=== PATIENT | female | born 1930 | race Caucasian/White ===

== ENCOUNTER 2018-11-27 05:57 | Day surgery (SDC) | payer OTHER, BC ==
[2018-11-26 16:06] VITALS: BMI 24.1
[~2018-11-27 05:57] MED LIST: BUPIVACAINE HCL/PF 0.5% (5MG/ML) 10 ML VIAL IJ ONE
[2018-11-27] MEDS ORDERED: BUPIVACAINE HCL/PF 0.5% (5MG/ML) 10 ML VIAL ONE (07:33)
[2018-11-27] MEDS ORDERED: LIDOCAINE HCL 1%, 10 MG/ML (20ML VIAL) ONE (07:33)
[2018-11-27] MEDS ORDERED: PROPOFOL 20 ML ONE ×2 (08:05)
[2018-11-27] MEDS ORDERED: MIDAZOLAM HCL 2 MG/2 ML SINGLE DOSE VIAL ONE (08:06)
--- NOTE | 2018-11-27 08:08 | HP ---
Satellite [facility] - Chief Complaint Chief Complaint: left hand pain, numbness, tingling History of Present Illness: left CTS History Source: Patient Limitations to Obtaining History: No Limitations - Past Medical History Allergies/Adverse Reactions: Allergies Allergy/AdvReac Type Severity Reaction Status Date / Time No Known Allergies Allergy Verified 11/27/18 06:41 - Current Medications Current Medications: Home Medications Medication Instructions Recorded Acetaminophen [Tylenol] 650 mg PO TID 08/05/18 Ascorbic Acid [Vitamin C] 500 mg PO DAILY 11/26/18 Cholecalciferol (Vitamin D3) 1,000 unit PO DAILY 11/26/18 [Vitamin D3] Glucosamine/Chondr Ogden A Sod [Osteo 1 each PO DAILY 11/26/18 Bi-Flex Caplet] Satellite Physical Exam - Physical Examination Vital Signs: Vital Signs Period Temp Pulse Resp BP Sys/Garcia Pulse Ox Last 24 Hr 97.6 F 88 16 146/76 96 General Appearance: Well Nourished ENT: Clear Lung: Clear to auscultation Heart: Regular rate & rhythm Breasts: Soft Abdomen: Soft Extremities: No edema Satellite Impression/Plan - Impression/Plan Impression: left CTS Operative Procedure: left CTR Date to be Performed: 11/27/18
[2018-11-27] MEDS ORDERED: ceFAZolin SODIUM 1 GM VIAL IVPB ONE (08:14)
[2018-11-27] MEDS ORDERED: BUPIVACAINE HCL/PF 0.5% (5MG/ML) 10 ML VIAL IJ ONE (08:25)
[2018-11-27] MEDS ORDERED: LIDOCAINE HCL 1%, 10 MG/ML (20ML VIAL) INF ONE (08:25)
--- NOTE | 2018-11-27 08:50 | OP ---
Operative Note - Note: Operative Date: 11/27/18 ([facility]) Pre-Operative Diagnosis: left cts Operation: left ctr, tenosynovectomy Post-Operative Diagnosis: Same as Pre-op Surgeon: Kenyon Abraham Anesthesia: General, Local Specimens Removed: tenosynovium Estimated Blood Loss (mls): 0 (tournqiuet) Operative Report Dictated: Yes
[2018-11-27 10:25] VITALS: TEMP 97.8
--- NOTE | 2018-11-27 10:49 | SPEC ---
DATE OF OPERATION: 11/27/2018 PREOPERATIVE DIAGNOSIS: Left carpal tunnel syndrome and tenosynovitis. POSTOPERATIVE DIAGNOSIS: Left carpal tunnel syndrome and tenosynovitis. OPERATION: Left carpal tunnel release and tenosynovectomy. SURGEON: Kenyon Abraham M.D. ASSISTANTS: None. ANESTHESIA: MAC, local injection with 12 mL of 0.5% Marcaine and 1% lidocaine mix. ANESTHESIOLOGIST: Vilma Cesar M.D. DRAINS: None. COMPLICATIONS: None. SPECIMENS: Tenosynovium, left wrist. BLOOD LOSS: None. BLOOD GIVEN: None. FLUID REPLACEMENT: 500 mL of Plasmalyte. INDICATIONS: The patient is an 88-year-old female with preoperative diagnosis of severe and very symptomatic left carpal tunnel syndrome. After understanding the potential risks, complications, alternatives and benefits of surgery versus nonsurgical treatment, the patient elected to undergo this procedure. We had extensive preoperative discussions with both her and her daughter. They understand she will not get complete relief of her symptoms. There may be a continuation of the numbness, the weakness, the atrophy, etc., and she will continue to improve for 6 months. They understand this and other potential risks and complications, which were discussed and elected to go forward with surgery. DESCRIPTION OF PROCEDURE: The patient was brought to the operating room, peripheral IV placed and intravenous sedation was given. One gram of intravenous Ancef was given. MAC anesthesia was induced. A tourniquet was applied to the left upper arm and the left upper extremity was prepped and draped in sterile fashion. The entire case was done under 3.8 loupe magnification. A marking pen was utilized to zoila out a longitudinal incision in an already existing skin crease. Twenty mL of 0.5% Marcaine mixed with 1% Lidocaine was injected in and around the surgical incision. The left upper extremity was elevated, exsanguinated with an Esmarch bandage and the tourniquet inflated to 250 mmHg. A No. 15 scalpel blade was utilized to cut down through the skin. Subcutaneous hemostasis was achieved with the bipolar cautery. Dissection was done through the superficial palmar fascia. Self-retaining retractors were placed into the wound. Under direct visualization, the transverse carpal ligament was transected with a No. 15 scalpel blade, exposing the median nerve and the contents of the carpal tunnel. The distal and proximal extents of the release were completed with a Littler scissor and checked with irrigation and my small finger. They were seen to be complete. Limited dissection was done on the radial side of the median nerve and more extensive dissection was done on the ulnar side of the median nerve. The patients nerve was seen to be quite compressed by epineurium and therefore a limited epineurotomy was performed. A Ragnell retractor was used to gently retract the median nerve in a radial direction. The patient had a lot of tenosynovitis and therefore a tenosynovectomy was performed off all 9 flexor tendons. This was passed off the field as tenosynovium left wrist. The floor of the carpal tunnel was checked. There were no abnormal masses or ganglion cysts. The area was copiously irrigated and washed out and closure begun. Undyed 4-0 Vicryl was used to close the deep dermal layer. Final skin reapproximation was done with horizontal mattress 4-0 nylon sutures. The area was then washed and dried, covered with Xeroform, 4x4s, fluffs between the fingers, Webril and a 4-inch plaster roll was utilized to make a volar splint, which was then wrapped with Chema and Coban. The tourniquet was taken down after a total tourniquet time of 12 minutes. There were no complications during the case. The patient tolerated the procedure well and was brought to the ambulatory recovery room in stable condition. Shannno [id number]
[2018-11-27 13:07] VITALS: BP 121/54; PULSE 90
--- NOTE | 2018-11-29 16:34 | PATH ---
Surgical Pathology Report Patient Name: FARA STEEL [facility]. Rec. #: [id number] /Age/Gender: 1930 (Age: 88) / F Account: [id number] Location: [facility] Taken: 11/27/2018 Received: 11/27/2018 Reported: 11/29/2018 Physicians: Kenyon Abraham M.D. Specimen(s) Received LEFT TENOSYNOVIUM Clinical History Left carpal tunnel Final Diagnosis TENOSYNOVIUM, LEFT, CARPAL TUNNEL RELEASE: BENIGN DENSE FIBROCONNECTIVE TISSUE AND SKELETAL MUSCLE. Electronically Signed Ruth Huitron M.D. Gross Description Received in formalin labeled "left tenosynovium," is a 2.3 x 1.5 x 0.3 cm aggregate of pak-yellow, irregular portions of soft tissue, consistent with tenosynovium. The specimen is submitted in toto in one cassette. /11/27/201811/27/2018
== END 2018-11-27 11:15 | disposition home or self-care (01) ==
LOC: JASU-SURG 05:57
PROVIDERS: ATTEND Orthopaedic Surgery
PROC: 01N50ZZ Release Median Nerve, Open Approach (ICD-10-PCS; principal; 2018-11-27 08:00)
DX: G56.02 Carpal tunnel syndrome, left upper limb (principal); M65.832 Other synovitis and tenosynovitis, left forearm
CPT/HCPCS: 88304-TC; 94760